=== PATIENT | male | born 1970 | race Caucasian/White ===

== ENCOUNTER → 2022-09-18 | Outpatient (CLI) | payer SELFPAY ==
--- NOTE | 2022-09-18 08:10 | CT_ITS ---
INDICATION: TRAUMA EXAMINATION: CT BRAIN - CT Head or Brain W/O Contrast Injection TECHNIQUE: Multiple axial images were obtained of the head without intravenous contrast. A radiation dose optimization technique was used for this scan. IV Contrast dosage and agent: None. COMPARISON: None FINDINGS: No acute intra or extra-axial hemorrhage. No significant midline shift. Age-appropriate size and configuration of the ventricles. No acute infarct, significant cerebral edema, or parenchymal masses. Orbits and globes are unremarkable. Soft tissues are unremarkable. Age-indeterminate nondisplaced nondepressed left frontal calvarium fracture involving the left orbital roof. Comminuted minimally displaced minimally depressed left posterior orbital roof fracture. Comminuted minimally displaced left posterior lateral orbital wall fracture. Minimally displaced left zygomatic bone fracture involving the segment arch and zygomatic process. Nondisplaced left anterior and lateral mastoid sinus wall fractures. Hyperdense mucosal opacification of the left maxillary sinus. The remainder the sinuses are patent. Mastoid air cells are clear. CT/Brain/Head without Contrast IMPRESSION: 1. No acute intracranial findings. 2. Age-indeterminate left frontal calvarium and facial bone fractures as detailed above. Electronically Signed: Ge Farfan, at 8:41 EST ,
== END | disposition home or self-care (01) ==
LOC: CT 08:02
PROVIDERS: PCP Family Medicine
DX: S06.6X9D Traumatic subarachnoid hemorrhage with loss of consciousness of unspecified duration, subsequent encounter (principal)
CPT/HCPCS: 70450